=== PATIENT | female | born 1995 | race Caucasian/White ===

== ENCOUNTER 2016-05-06 03:42 | Emergency (ER) | payer BC ==
[2016-05-06 03:52] VITALS: BP 140/90
[2016-05-06] MEDS ORDERED: Ketorolac INJ* 30 MG/ML 1 ML VIAL IM ONE (04:02)
[2016-05-06] MEDS ORDERED: Cyclobenzaprine TAB* 10 MG PO ONE (04:30)
--- NOTE | 2016-05-06 04:40 | ED ---
Papi Cotto Benjamin, scribed for Grabiel Brunner MD on 05/06/16 at 0404 . Neck Pain - HPI Summary HPI Summary: 20yo female c/o neck and back pain since 1900 yesterday. Pt slipped and fell on ice yesterday at 1700. Pt took 2 pills of ibuprofen [employer]. - History of Current Complaint Chief Complaint: EDBackInjuryPain Stated Complaint: NECK AND BACK PAIN Time Seen by Provider: 05/06/16 03:58 Hx Obtained From: Patient Mechanism Of Injury: Other - fall Timing: Constant Onset/Duration: Gradual Onset, Started hours ago, Still Present Severity Initially: Mild Severity Currently: Mild Pain Intensity: 4 Pain Scale Used: 0-10 Numeric Location: Radiates To: - back Character: Spasmotic Aggravating Factors: Nothing Alleviating Factors: Nothing - Allergies/Home Medications Allergies/Adverse Reactions: Allergies Allergy/AdvReac Type Severity Reaction Status Date / Time No Known Allergies Allergy Verified 05/06/16 03:48 Home Medications: Home Medications Cholecalciferol TAB* [Vitamin D TAB*] 1,000 unit PO DAILY 05/06/16 [History Confirmed 05/06/16] Loratadine [Claritin] 10 mg PO DAILY 05/06/16 [History Confirmed 05/06/16] Multivitamins/Minerals TAB* [Thera M Plus TAB*] 1 tab PO DAILY 05/06/16 [ History Confirmed 05/06/16] Probiotic Product [Probiotic Daily] 1 cap PO DAILY 05/06/16 [History Confirmed 05/06/16] PMH/Surg Hx/FS Hx/Imm Hx Previously Healthy: Yes Infectious Disease History: No Infectious Disease History: Denies: Traveled Outside the [place] in Last 30 Days - Family History Known Family History: Negative: Cardiac Disease, Hypertension - Social History Occupation: Student Lives: Alone Alcohol Use: Rare Substance Use Type: Reports: None Smoking Status (MU): Never Smoked Tobacco Review of Systems Constitutional: Negative Eyes: Negative ENT: Negative Cardiovascular: Negative Respiratory: Negative Gastrointestinal: Negative Genitourinary: Negative Positive: Arthralgia - nack pain, Myalgia - back pain Skin: Negative Neurological: Negative Psychological: Normal All Other Systems Reviewed And Are Negative: Yes Physical Exam Triage Information Reviewed: Yes Vital Signs On Initial Exam: Initial Vitals Temp Pulse Resp BP Pulse Ox 99.9 F 75 16 140/90 100 05/06/16 03:49 05/06/16 03:49 05/06/16 03:49 05/06/16 03:49 05/06/16 03:49 Vital Signs Reviewed: Yes Appearance: Positive: No Pain Distress, Thin Skin: Positive: Warm Head/Face: Positive: Normal Head/Face Inspection Eyes: Positive: JUDIT ENT: Positive: Hearing grossly normal Neck: Positive: Supple, Tenderness @ - paracervical tenderness Respiratory/Lung Sounds: Positive: Breath Sounds Present Cardiovascular: Positive: RRR Abdomen Description: Positive: Nontender, Soft Bowel Sounds: Positive: Present Musculoskeletal: Positive: Other - mild lumbar spasm Neurological: Positive: Sensory/Motor Intact Psychiatric: Positive: Normal Diagnostics - Vital Signs Vital Signs Temp Pulse Resp BP Pulse Ox 05/06/16 03:49 99.9 F 75 16 140/90 100 - Laboratory Lab Statement: Any lab studies that have been ordered have been reviewed, and results considered in the medical decision making process. Neck Course/Dx - Diagnoses Provider Diagnoses: Back pain, neck pain Discharge - Discharge Plan Condition: Stable Disposition: HOME Prescriptions: Cyclobenzaprine TAB* [Flexeril TAB*] 5 mg PO TID PRN #10 tab PRN Reason: Spasms - Back Ibuprofen TAB* [Motrin TAB* 600 MG] 600 mg PO Q8H #30 tab Patient Education Materials: Acute Neck Pain (ED), Acute Low Back Pain (ED) [facility] [Primary Care Provider] - The documentation as recorded by the Papi bella Benjamin accurately reflects the service I personally performed and the decisions made by me, Grabiel Brunner MD.
== END 2016-05-06 05:35 | disposition home or self-care (01) ==
LOC: ED 03:42
DX: M54.9 Dorsalgia, unspecified (principal); M54.2 Cervicalgia; W00.0XXA Fall on same level due to ice and snow, initial encounter; Y92.9 Unspecified place or not applicable
CPT/HCPCS: 96372; 99281; A9270-GY; J1885